=== PATIENT | female | born 1990 | race Caucasian/White ===

== ENCOUNTER → 2021-12-21 | Emergency (ER) | payer BC ==
[~2021-12-21] VITALS: Ht 167.6 cm; Wt 81.6 kg
[~2021-12-21] MED LIST: IBUP-1955 PO; IBUPROFEN 600 MG TABLET ONE; IBUPROFEN 600 MG TABLET PO ONE
--- NOTE | 2021-12-21 21:30 | NUR ---
BIBS C/O LEFT SIDED CHESTPAIN X2DAYS. 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 HX OF ANXIETY. PLACED IN BED. VITALS CHECKED.
--- NOTE | 2021-12-21 21:49 | NUR ---
ACQUISITIONS LOGISTICS ANALYST AT BEDSIDE
--- NOTE | 2021-12-21 21:49 | NUR ---
EKG DONE AT BEDSIDE. AWARE
[2021-12-21 22:31] LABS: CARBON DIOXIDE 22 mmol/L (21-32); CHLORIDE 102 mmol/L (98-107); GLUCOSE 74 mg/dL (74-106); POTASSIUM 3.9 mmol/L (3.5-5.1); SODIUM SERUM 136 mmol/L (136-145); UREA NITROGEN, BLOOD 14 mg/dL (7-18)
--- NOTE | 2021-12-21 22:56 | NUR ---
Patient discharged to home in stable condition. Written and verbal after care instructions given. Patient verbalizes understanding of instruction. Patient refusing to wait for second trop despite MD recommendation.
[2021-12-21 22:57] VITALS: BP 128/81
[2021-12-21 23:29] LABS: BASOPHILS % (AUTO) 0.5 % (0.0-2.0); EOSINOPHILS % (AUTO) 2.3 % (0.0-6.0); HEMATOCRIT 38 % (33-45); HEMOGLOBIN 12.7 g/dL (11.5-14.8); LYMPHOCYTES # (AUTO) 2.6 K/uL (0.8-4.8); LYMPHOCYTES % (AUTO) 29.1 % (20.0-44.0); MEAN CORPUSCULAR HGB CONC 33 g/dl (31.0-36.0); MEAN CORPUSCULAR VOLUME 90 fL (82-100); MONOCYTES # (AUTO) 0.6 K/uL (0.1-1.30); MONOCYTES % (AUTO) 7.2 % (2.0-12.0); NEUTROPHILS # (AUTO) 5.4 K/uL (1.8-8.9); NEUTROPHILS % (AUTO) 60.9 % (43.0-81.0); PLATELET COUNT (AUTO) 318 K/uL (150-450); RED BLOOD CELL COUNT(AUTO) 4.27 MIL/uL (4.0-5.2); WHITE BLOOD COUNT (AUTO) 8.9 K/uL (4.3-11.0)
== END | disposition home or self-care (01) ==
LOC: ER 21:11
DX: R07.81 Pleurodynia (principal); R07.89 Other chest pain; F41.9 Anxiety disorder, unspecified; Z60.2 Problems related to living alone
CPT/HCPCS: 36415; 71045-TC; 80048-TC; 84484-TC; 84702-TC; 85025-TC; 85378-TC